=== PATIENT | male | born 1985 | race Caucasian/White ===

== ENCOUNTER 2017-04-13 16:21 | Emergency (ER) | payer OTHER, SELFPAY ==
[2017-04-13 16:23] VITALS: BP 147/93; PULSE 77; RESP 15; TEMP 36.3; O2SAT 100; BMI 23.1
--- NOTE | 2017-04-13 16:28 | RAD_ITS ---
STUDY: X-RAY - LEFT HAND REASON FOR EXAM: Male, 31 years old. Left hand pain TECHNIQUE: 3 view(s) of the hand. COMPARISON: None. FINDINGS: Normal radiocarpal articulation. Normal distal radioulnar joint. Normal visualized carpal bones. Normal carpal articulations Normal carpometacarpal articulation of the thumb. Normal second through fifth carpometacarpal joints. Normal metacarpi. Normal metacarpophalangeal joint of the thumb. Normal interphalangeal joint of the thumb. Normal proximal and distal phalanges of the thumb. Normal metacarpophalangeal joints of the second through fifth fingers. Normal proximal and distal interphalangeal joints of the second through fifth fingers. Normal phalanges of the second through fifth fingers. Soft tissue injury at the distal tip of the third digit RAD/Hand Min 3 Views IMPRESSION: Soft tissue injury of the third digit without osseous injury Electronically Signed: Antelmo Pereyra DO at 16:52 EST Tel , Service support ,
--- NOTE | 2017-04-13 17:29 | ED.VISSUMM ---
- ER Visit Summary Date of Service: 04/13/17 Chief Complaint: Crush injury left long finger at work History of Present Illness: The patient is a 31 M is right-handed presents with crush injury to the left long finger. This occurred at work. No antibiotic allergies. Immunizations not up-to-date. He denies paresthesia, anesthesia or motor weakness. He denies inability to move his finger. Physical Examination: Vision has partial amputation distal bursal surface of the left long finger with partial avulsion of the nail with nail bed injury and partial avulsion of the distal left long finger. The extensor, tendon is intact. Flexor digitorum superficialis and flexor digitorum profundus are intact. Capillary refill is normal. Sensations intact. Test Results: X-ray per nursing protocol was entered. There is evidence of soft tissue loss with no evidence of fracture. Emergency Department Course and Treatment: Wound care removal of ring and referral to Dr. Mitch Aguilar Treatment Plan: Wound care Disposition: Outpatient orthopedic follow-up Impression: Crush injury left long finger with partial nail avulsion with nailbed injury and partial amputation distal dorsal surface left long finger, initial encounter This note was generated with [employer] dictation software. It may contain incorrect words, spelling, and punctuation that were not noted in review of the chart prior to signing ED Disposition - Plan for ED Patient: Disposition: Home or Assisted Living Chief Complaint: Upper Extremity Injury Instructions: ED Avulsion Nail Partial, ED Crush Injury Finger No Fx Prescriptions: Hydrocodone Bitart/Apap 5-325 [Branscomb 5MG-325MG] 1 tab PO Q6H PRN PRN #10 tab PRN Reason: Pain Referrals: [facility] Doctor,Out of [Primary Care Provider] - Mitch Aguilar DO [STAFF PHYSICIAN] - 2 Days for wound check
--- NOTE | 2017-04-13 17:34 | ED.DCSUM_ITS ---
- ER Visit Summary Date of Service: 04/13/17 Chief Complaint: Crush injury left long finger at work History of Present Illness: The patient is a 31 M is right-handed presents with crush injury to the left long finger. This occurred at work. No antibiotic allergies. Immunizations not up-to-date. He denies paresthesia, anesthesia or motor weakness. He denies inability to move his finger. Physical Examination: Vision has partial amputation distal bursal surface of the left long finger with partial avulsion of the nail with nail bed injury and partial avulsion of the distal left long finger. The extensor, tendon is intact. Flexor digitorum superficialis and flexor digitorum profundus are intact. Capillary refill is normal. Sensations intact. Test Results: X-ray per nursing protocol was entered. There is evidence of soft tissue loss with no evidence of fracture. Emergency Department Course and Treatment: Wound care removal of ring and referral to Dr. Mitch Aguilar Treatment Plan: Wound care Disposition: Outpatient orthopedic follow-up Impression: Crush injury left long finger with partial nail avulsion with nailbed injury and partial amputation distal dorsal surface left long finger, initial encounter This note was generated with [employer] dictation software. It may contain incorrect words, spelling, and punctuation that were not noted in review of the chart prior to signing ED Disposition - Plan for ED Patient: Disposition: Home or Assisted Living Chief Complaint: Upper Extremity Injury Instructions: ED Avulsion Nail Partial, ED Crush Injury Finger No Fx Prescriptions: Hydrocodone Bitart/Apap 5-325 [Emerado 5MG-325MG] 1 tab PO Q6H PRN PRN #10 tab PRN Reason: Pain Referrals: [facility] Doctor,Out of [Primary Care Provider] - Mitch Aguilar DO [STAFF PHYSICIAN] - 2 Days for wound check
[2017-04-13] MEDS: Diphth,Pertuss(Acell),Tet Vac 0.5 ML Vial IM (18:34)
== END 2017-04-13 18:36 | disposition home or self-care (01) ==
LOC: ED 18:03
PROVIDERS: Emergency Provider Emergency Medicine; Family Provider Family Medicine; PCP Family Medicine
DX: S67.193A Crushing injury of left middle finger, initial encounter (principal); S61.303A Unspecified open wound of left middle finger with damage to nail, initial encounter; S68.123A Partial traumatic metacarpophalangeal amputation of left middle finger, initial encounter; X58.XXXA Exposure to other specified factors, initial encounter; Y93.9 Activity, unspecified; Y92.9 Unspecified place or not applicable; Y99.0 Civilian activity done for income or pay
CPT/HCPCS: 73130; 90715; 99281

== ENCOUNTER → 2020-01-03 21:10 | Emergency (ER) | payer BC, SELFPAY ==
[2020-01-03 21:11] VITALS: BP 126/88; PULSE 85; RESP 18; TEMP 36.2; O2SAT 99; BMI 22.7
--- NOTE | 2020-01-03 21:26 | ED.DCSUM_ITS ---
History of Present Illness Chief Complaint: Lower Extremity Injury Informant: Patient Onset: Hours Context: Sudden Onset Timing: Continuous Quality: Pain left knee Location: Left knee Current Severity: Mild Maximum Severity: Severe Worsened by: Movement, weightbearing, more so with movement Relieved by: Nothing Associated Symptoms: No constitutional symptoms. 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 He gets a lot of abrasions. He denies history of gout or pseudogout. Eyes fever, chills night respiratory denies history of diabetes. He has no antibiotic allergies or medication allergies. He denies prior episode. Prior similar symptoms: No Recent Illness/Hospitalization: No - Past Medical History (1) No significant past medical history Status: Acute Past Medical History - Allergies and Home Meds Allergies/Adverse Reactions: Allergies No Known Allergies Allergy (Verified 04/17/17 09:30) Primary Care Physician: NOT,DEFINED [Primary Care Provider] - Prior records reviewed: No Past Medical History: None Surgical History: no surgical history Lives: With Family Smoking Status: Current every day smoker Alcohol: Rare Drugs: None Review of Systems General: Denies: Chills, Fever, Malaise, Subjective, Sweats Cardiovascular: Denies: Chest pain, Palpitations Respiratory: Denies: Dyspnea, Dyspnea on exertion Gastrointestinal: Denies: Abdominal pain, Nausea, Vomiting, Diarrhea Musculoskeletal: Reports: Swelling, Extremity Pain. Denies: Myalgias, Arthralgi as, Neck pain, Back pain Skin: Reports: Abrasions Neurological: Denies: Headache, Weakness, Parasthesia, Numbness Hematologic: Denies: Easy bruising, Easy bleeding Physical Exam Vital Signs/Narrative: Vital Signs Temp Pulse Resp BP Pulse Ox 01/03/20 21:11 97.2 F L 85 18 126/88 H 99 Inital Vital Signs reviewed: Yes General: Well nourished, Well developed, - - And appears uncomfortable when he changes position. Head: Normocephalic, Atraumatic Eyes: Perrl, EOMI. Negative for: Pale conjunctiva, Scleral icterus Cardiovascular: Regular rate, Regular rhythm Respiratory: No distress Back: Nontender, Normal Inspection Extremities: No edema, Tenderness - There is tenderness over the infrapatellar bursal region with crepitus. There is pain with active and passive flexion extension. The patella is not ballotable. There is no effusion. There is no joint line tenderness. There is no lateral varus valgus stress testing. Brittni test was negative. . Negative for: Nontender Skin: Normal color, Rash, Trauma. Negative for: Cyanosis, Diaphoresis, Jaundice, No Trauma Neurological: Alert, Oriented x3, Cranial nerves II-XII grossly intact, Normal Strength, Normal Sensation Psychological: Normal affect Diagnostic/Tx/Re-eval - Medical Decision Making Cerner patient has a traumatic versus septic bursitis. There is evidence of cellulitis. Patient was informed to diagnose a septic bursitis versus a traumatic would need to aspirate the fluid. Patient verbally consented. Area was prepped draped sterile manner. 21-gauge needle was used and inserted area of fluctuance. There was no return of any liquid of any type. Suspect patient has a traumatic bursitis and cellulitis. Will treat with cephalexin, Bactrim and anti-inflammatory since he has no contraindication. Procedures Procedure(s): Needle aspirate of infrapatellar bursa, no fluid was aspirated. ED Disposition - Plan for ED Patient: Disposition: Home or Assisted Living Diagnosis: Infrapatellar bursitis of left knee, Cellulitis of left knee Instructions: ED Bursitis, ED Cellulitis Prescriptions: Smz/Tmp Ds [Bactrim Ds] 1 tab PO BID #14 tab Prescription Printed Cephalexin [Keflex] 500 mg PO Q6 #28 cap Prescription Printed Naproxen [Naprosyn] 500 mg PO BID #14 tab Prescription Printed Referrals: NOT,DEFINED [Primary Care Provider] - Linsey Lindsay DO [STAFF PHYSICIAN] - 3-5 Days
[2020-01-03] MEDS: Cephalexin 250 MG Capsule 500 MG PO (21:37)
[2020-01-03] MEDS: HYDROcodone Bitartrate/Apap 5/325 Tablet PO (21:37)
[2020-01-03] MEDS: Smz/Tmp Ds Tablet 1 TABLET PO (21:37)
== END | disposition home or self-care (01) ==
PROVIDERS: Emergency Provider Emergency Medicine
DX: M70.52 Other bursitis of knee, left knee (principal); Y93.9 Activity, unspecified; L03.116 Cellulitis of left lower limb; F17.200 Nicotine dependence, unspecified, uncomplicated
CPT/HCPCS: 20610; 99281; 99284

== ENCOUNTER → 2021-10-26 | Outpatient (CLI) | payer BC, MEDICAID, SELFPAY | END | disposition home or self-care (01) | LOC: SL 20:23 | PROVIDERS: Referring Provider Otolaryngology; Visit Provider Otolaryngology | DX: R06.83 Snoring (principal); R53.83 Other fatigue; R09.81 Nasal congestion; J35.1 Hypertrophy of tonsils | CPT/HCPCS: 95810 ==

== ENCOUNTER 2021-12-20 15:29 | Emergency (ER) | payer BC, MEDICAID, SELFPAY ==
[2021-12-20 15:31] VITALS: BP 137/90; PULSE 83; RESP 16; TEMP 36.6; O2SAT 100; BMI 22.4
--- NOTE | 2021-12-20 16:44 | EKG12_ITS ---
Test Reason : CHEST PAIN Blood Pressure : / mmHG Vent. Rate : 083 BPM Atrial Rate : 083 BPM P-R Int : 186 ms QRS Dur : 084 ms QT Int : 340 ms P-R-T Axes : 068 075 050 degrees QTc Int : 399 ms Normal sinus rhythm Normal ECG Confirmed by BRANDT CASAS, NIC ([id number]), telegraph editor QUIANA QUIGLEY ([id number]) on 12/22/2021 9:22:51 AM Referred By: GURINDER Confirmed By:NIC CARLTON MD
--- NOTE | 2021-12-20 16:45 | ED.VIS.CHEST ---
HPI History of Present Illness Chief Complaint: Chest Other Detail of Chief Complaint: Right-sided chest pain worse with coughing. Informant: patient Onset/Context/Timing Onset: Today and Hours Activity at onset: gradual Timing: Continuous and Intermittent Current Severity: Mild Maximum Severity: Moderate Worsened By: Coughing; Not Worsened By Exertion, Movement of Arm, Movement of Torso, Eating, Palpation or Breathing Associated Symptoms: Negative for Nausea, Vomiting, Diaphoresis, Dyspnea, Cough, Fever, Lightheadedness or Palpitations Narrative Narrative: 36-year-old male who has a history of ADHD. No other medical problems. States he works first shift and around 5 AM this morning noticed right-sided chest discomfort. Its only about a 1 out of 10 unless he is coughing or sneezing he said it becomes a quick sharp more intense pain. No prior history. No chest wall injury. Is never had a pneumothorax. He is never had a DVT or PE. He has no risk factors. Has had no recent travel, surgery or immobilization. No leg pain or swelling. No hemoptysis. No family history of pneumothoraces or blood clots that he is aware of. He denies any other complaints. Prior Similar Symptoms: No Recent Illness/Hospitalization: No CVD Risk Factors: Negative for Hypertension, Diabetes, Hypercholesterolemia or Family History 1' </=55 PE Risk Factors: Negative for Recent Travel/Surgery, Recent Immobilization, Prior DVT or PE, Cancer or OCP + Smoking + >/=35 TAD Risk Factors: Negative for Marfan's Syndrome PFSH PFSH Home Medications hydrocodone-acetaminophen 5-325mg 5mg-325mg 1 tab PO Q6H PRN PRN Pain #10 tabs 04/13/17 [Rx Last Taken Unknown] methylphenidate HCl 5 mg tablet 5 mg PO BID 04/13/17 [History Last Taken Unknown] cephalexin 500 mg capsule 500 mg PO Q6 #28 caps 01/03/20 [Rx Last Taken Unknown] naproxen 500 mg tablet 500 mg PO BID #14 tabs 01/03/20 [Rx Last Taken Unknown] sulfamethoxazole 800 mg-trimethoprim 160 mg tablet 1 tab PO BID #14 tabs 01/03/20 [Rx Last Taken Unknown] Allergy/AdvReac Type Severity Reaction Status Date / Time No Known Allergies Allergy Verified 12/20/21 15:33 Surgical History jaw repair Social History Smoking Status: Never smoker ROS ROS ED ROS Narrative Denies recent illness. Review of Systems ROS Unobtainable: Denies due to encephalopathy Constitutional Constitutional ED: Denies chills or fever(s) Eyes Eyes: Reports none ENT ENT ED: Denies ear pain Cardiovascular Cardiovascular: Reports as per HPI and chest pain; Denies palpitations or racing heartbeat Respiratory/Chest Respiratory/Chest: Denies cough or dyspnea Gastrointestinal Gastrointestinal: Denies abdominal pain Genitourinary Genitourinary ED: Denies dysuria or hematuria Musculoskeletal Musculoskeletal: Denies arthralgias Integumentary Denies abscess Neurologic Neurologic: Denies headache(s) Psychiatric Psychiatric: Denies anxiety Endocrine Endocrinology: Denies cold intolerance Hematologic/Lymphatic Hematologic/Lymphatic: Denies easy bleeding Allergic/Immunologic Allergic/Immunologic ED: Denies mouth swelling or tongue swelling EXAM Physical Exam Narrative Exam Narrative: 36-year-old male no acute distress. Vital signs stable afebrile. Pulse ox 90% on room air no hypoxia. H EENT exam unremarkable. Neck nontender. Lungs clear to auscultation bilaterally. Heart regular rhythm no murmur. Rate about 80. Chest wall is completely nontender. No ecchymosis or bruising. No subcu air or crepitance. No bruising. Abdomen soft nontender. Moving all 4 extremities. Calves nontender without edema or cords. Back exam normal. Neurologic exam normal. Const Vital Signs: 12/20/21 15:31 Temperature 97.8 F Temperature Source Temporal Pulse Rate 83 Respiratory Rate 16 Blood Pressure 137/90 H Blood Pressure Mean 105 Pulse Ox 100 Oxygen Delivery Method Room Air Positive well nourished and well developed; Negative for obese, cachectic, contractures or unkempt General Appearance ED: well developed and NAD; Negative for unkempt, cachectic, contractures or pallor Nutritional Appearance: Negative for cachectic or obese HEENT Reports moist mucous membranes normocephalic and atraumatic; Negative for trauma or tenderness Eyes PERRL and EOMs intact bilaterally General Eye ED: Negative for pale conjunctiva or scleral icterus Neck no lymphadenopathy, supple and no JVD General: Negative for tenderness Chest Wall inspection of chest normal and palpation of chest normal Chest: Negative for tenderness Resp normal respiratory effort and clear to auscultation bilaterally Effort and Inspection: Negative for respiratory distress Auscultation: Negative for rales, rhonchi or wheezes Cardio regular rate, regular rhythm, S1 normal heart sound, S2 normal heart sound and no murmurs Rate: Negative for bradycardia GI normal to inspection, nondistended, normoactive bowel sounds, soft to palpation, non-tender, non-distended and no masses Auscultation: Negative for hyperactive bowel sounds Palpation: Negative for splenomegaly Back/Spine no CVA tenderness General Back: Negative for CVA tenderness Cervical Spine: Negative for cervical spine tenderness Extremity normal to inspection General Extremety ED: Negative for edema or pulses abnormal General Extremity: Negative for edema or pulses abnormal Neuro oriented x3, CN's II-XII intact bilaterally and no sensory deficits noted Sensorium / Orientation: awake, alert, oriented to person, oriented to place and oriented to time; Negative for confused, lethargic or stuporous Motor Exam: strength 5/5 throughout; Negative for general weakness Psych mental status grossly normal Appearance: Negative for unkempt Attitude: No agitated Mood & Affect: Negative for depressed, anxious or tearful Skin no rashes or lesions noted and no wounds General Skin Exam: Negative for jaundice or pallor Rashes: No rashes noted Trauma: Negative for abrasion MDM MDM MDM Narrative Medical decision making narrative: Healthy 36-year-old male with right-sided chest pain and some very mild unless he coughs or sneezes. Not reproducible. He has no risk factors or history of a DVT or PE. No physical findings of such. I think is unlikely this is cardiac. He has no reproducible chest wall pain to make me think it is musculoskeletal. Possibly pneumothorax. A chest x-ray and EKG will be obtained. Patient's EKG and chest x-ray were both unremarkable. Normal. Repeat exam unchanged. He has no DVT or PE risk factors or history. Clinically I do not think this is that. I believe this to be pleurisy. He had I discussed treatment options. He will use Motrin 600 mg 3 times a day if pain is not improving he will seek follow-up evaluation. If he gets worse he will return. Radiography Chest X-Ray - ED: 1 View, Read by ED Physician, Read by Radiologist, Heart, Lungs, Mediastinum, Bony Structures and No Acute Disease Diagnostic Testing: Clinical Impression(s) from Imaging Studies Chest X-Ray 12/20/21 16:50 IMPRESSION: No radiographic evidence of acute cardiopulmonary disease. Electronically Signed: René Porras MD at 17:10 EDT , Chest x-ray, 2 views, AP and lateral interpreted both by myself and radiologist shows no acute abnormality. Normal cardiac silhouette. And mediastinum. Normal lungs. No infiltrate. No visible pneumothorax. No bony abnormalities. Rhythm Strip Rhythm Strip: Sinus Rhythm Rate: 83 Ectopy: None EKG Initial EKG: Attestation: I personally reviewed and interpreted this EKG as follows: Interpretation: Sinus Rhythm and No Acute Injury Pattern Comments: Normal sinus rhythm rate 83 no acute signs of MA or ischemia. Discharge Plan Triage Chief Complaint: Chest Other ED Provider: Nilton Moore Dx/Rx/DC Orders Clinical Impression: Pleurisy, Right-sided chest pain Instructions: ED Pleurisy Prescriptions: No Action methylphenidate HCl 5 MG tablet 5 mg PO BID hydrocodone-acetaminophen 1 TABLET tablet 1 tab PO Q6H PRN PRN (Reason: Pain) Qty: 10 0RF sulfamethoxazole-trimethoprim 1 TABLET tablet 1 tab PO BID Qty: 14 0RF cephalexin 500 MG capsule 500 mg PO Q6 Qty: 28 0RF naproxen 500 MG tablet 500 mg PO BID Qty: 14 0RF Primary Care Provider: Care Physician,No Primary Referrals: Remberto Marin MD [Med Staff - Senior Product Integrity Engineer] - 3-5 Days if not improving Care Physician,No Primary [Primary Care Provider] - Activity Restrictions/Additional Instructions: Your exam, chest x-ray and EKG are all normal. I believe this is secondary to pleurisy which is inflammation of your lung lining. Motrin 600 mg 3 times a day. This pain should start improving and resolve if not you need to be seen for further evaluation. If you feel worse, increasing pain, shortness of breath or cough up any blood you need to return to be reevaluated. Disposition Disposition: Home, Self Care
--- NOTE | 2021-12-20 16:46 | NURSING ---
NO OLD EKGS
--- NOTE | 2021-12-20 16:50 | RAD_ITS ---
EXAM: XR CHEST, 2 VIEWS CLINICAL INDICATION: right sided cp TECHNIQUE: Frontal and lateral views of the chest. This report was created using [employer] report generation technology. COMPARISON: None. FINDINGS: LUNGS AND PLEURAL SPACES: Unremarkable. No consolidation or edema. No pneumothorax. No effusion. HEART: Unremarkable. Cardiac silhouette not enlarged. MEDIASTINUM: Central airways and mediastinal contour are unremarkable. BONES/JOINTS: Unremarkable. SOFT TISSUES: Unremarkable. RAD/Chest PA and Lateral IMPRESSION: No radiographic evidence of acute cardiopulmonary disease. Electronically Signed: René Porras MD at 17:10 EDT ,
--- NOTE | 2021-12-20 17:08 | NURSING ---
NO OLD EKGS
[2021-12-20] MEDS: Ibuprofen 600 MG Tablet PO (17:54)
== END 2021-12-20 17:55 | disposition home or self-care (01) ==
PROVIDERS: Emergency Provider Emergency Medicine; Visit Provider Emergency Medicine
DX: R09.1 Pleurisy (principal); R07.9 Chest pain, unspecified; F90.9 Attention-deficit hyperactivity disorder, unspecified type
CPT/HCPCS: 71046; 93005; 99283